=== PATIENT | male | born 1995 | race Caucasian/White ===

== ENCOUNTER 2023-04-07 19:54 | Emergency (ER) | payer BC, OTHER ==
[~2023-04-07] VITALS: Ht 180.3 cm; Wt 72.6 kg
[~2023-04-07 19:54] MED LIST: AMOX-430 PO
--- NOTE | 2023-04-07 21:08 | NUR ---
Dr. Sterling evaluated patient at bedside. MSE in progress.
[2023-04-07 21:16] LABS: *BILIRUBIN,URIN NEGATIVE (NEGATIVE); *BLOOD, URINE NEGATIVE (NEGATIVE); *COLOR,URINE YELLOW (YELLOW); *KETONES,URINE 2+ (NEGATIVE); *UROBILINOGEN,URINE 0.2 E.U./dl (NORMAL); LEUKOCYTE ESTERASE ,URINE TRACE (NEGATIVE); NITRITE, URINE NEGATIVE (NEGATIVE); PH,URINE 6.5 (5.0-8.0); UGLUCOSE NEGATIVE (NEGATIVE)
[2023-04-07 21:51] LABS: *CLARITY,URINE EH051062 (CLEAR)
[2023-04-07 21:56] LABS: RBC,URINE 0-3 /HPF (0-3)
[2023-04-07 21:57] LABS: BACTERIA,URINE FEW /HPF (NONE SEEN)
[2023-04-07] MEDS ORDERED: CEFTRIAXONE 500 MG VIAL ONE (22:24)
[2023-04-07] MEDS ORDERED: LIDOCAINE HCL 1% 20 ML VIAL ONE (22:25)
--- NOTE | 2023-04-07 22:29 | NUR ---
Dr. Anne given verbal order to administer Rocephin 500mg IM mixed with 1% Lidocaine
[2023-04-07] MEDS ORDERED: CEFTRIAXONE 500 MG VIAL IM ONE (22:30)
[2023-04-08] MEDS ORDERED: DOXY-326 PO (00:07)
[2023-04-08 00:26] VITALS: BP 127/88
--- NOTE | 2023-04-08 00:26 | NUR ---
Patient discharged to home in stable condition. Written and verbal after care instructions given. Patient verbalizes understanding of instructions. Stressed follow up or return to ER for worsening s/s. Patient is a/ox4, NAD noted. Patient ambulated with steady gait
[2023-04-10 08:06] LABS: *TRIC.VAG. NAA Negative (Negative)
[2023-04-10 09:06] LABS: *GC NAA Negative (Negative)
== END 2023-04-08 00:26 | disposition home or self-care (01) ==
LOC: ER 20:00
DX: A64 Unspecified sexually transmitted disease (principal); R30.0 Dysuria; R36.9 Urethral discharge, unspecified; Z79.2 Long term (current) use of antibiotics
CPT/HCPCS: 99283; 81001; 96372; 87040; 87491; J0696; J3490; A4663